=== PATIENT | male | born 1940 | race Caucasian/White ===

== ENCOUNTER → 2018-01-28 | Outpatient (CLI) | payer OTHER ==
--- NOTE | 2018-01-28 14:23 | RAD ---
CT LOW DOSE LUNG SCREENING Indication: GREATER THAN 40 PACK-YEAR SMOKING HISTORY. LOW DOSE PROTOCOL.
NO FAMILY H/O
1 PACK A DAY Exposure: One or more of the following individualized dose reduction techniques were utilized for this examination: 1. Automated exposure control 2. Adjustment of the mA and/or kV according to patient size 3. Use of iterative reconstruction technique. Comparison: None are available. Contrast: None TECHNIQUE: Low-dose technique was used to screen for pulmonary lesion. FINDINGS: There is a well-defined slightly lobulated mass in the right lower lobe posteriorly, measures 2 cm diameter. This demonstrates some small foci of mostly peripheral calcification. Smaller subpleural nodule the posterior right lower lobe measures 7 mm, image 214, series 2. Noncalcified nodule right lower lobe image 189 measures 5 mm. Right upper lobe nodule, image 73 measures 4 mm. Lingula segment nodule on the left, image 156, measures 3 mm. Another anterior nodule on the left, image 132, measures 2 mm. Left lower lobe nodule, image 224, measures 6 mm. Additional small nodules are also identified. There are linear markings of both lungs, likely atelectasis or fibrosis. Mild bronchial wall thickening. Coronary calcifications are identified. No significant pleural effusion. No significant lymph node enlargement. Partially visualized thyroid appears unremarkable. Severe severe degenerative changes are noted at both shoulders. Limited scans through the upper abdomen demonstrate a tiny nonobstructive calculus in the upper pole of the left kidney. Degenerative changes of the thoracic spine. IMPRESSION: 2 cm right lower lobe pulmonary mass, concerning for malignancy. There are multiple bilateral noncalcified pulmonary nodules, concerning for metastatic disease. FOR INTERNAL CODING PURPOSES Critical result: Findings discussed with Kannan in Dr. Ruvalcaba's office at 01/28/2018 2:17 PM. RESULT CODE: (C) Electronically signed by: Prem Muniz MD (01/28/2018 2:20 PM) [facility]
== END | disposition home or self-care (01) ==
LOC: CT 10:17
PROVIDERS: ATTEND Family Medicine
DX: Z12.2 Encounter for screening for malignant neoplasm of respiratory organs (principal); F17.218 Nicotine dependence, cigarettes, with other nicotine-induced disorders; I25.10 Atherosclerotic heart disease of native coronary artery without angina pectoris; N20.0 Calculus of kidney; R91.8 Other nonspecific abnormal finding of lung field
CPT/HCPCS: G0297

== ENCOUNTER → 2018-02-18 | Outpatient (CLI) | payer OTHER ==
--- NOTE | 2018-02-18 11:00 | CARD ---
MR#: [id number] Date of Study: 02/18/2018 Ordering Physician: SHIRLEY RODRIGUEZ, Referring Physician: SHIRLEY RODRIGUEZ Tech: Faby Middleton RDCS APPROVED REPORT EXAM: Two-dimensional and M-mode echocardiogram with Doppler and color Doppler. Other Information Quality : Good INDICATION Aortic Valve Disease 2D DIMENSIONS RVDd3.3 (2.9-3.5cm)Left Atrium(2D)3.8 (1.6-4.0cm) IVSd1.7 (0.7-1.1cm)Aortic Root(2D)3.4 (2.0-3.7cm) LVDd4.7 (3.9-5.9cm)LVOT Diameter2.2 (1.8-2.4cm) PWd1.3 (0.7-1.1cm)LVDs3.2 (2.5-4.0cm) FS (%) 32.2 %SV61.2 ml LVEF(%)60.4 (>50%) Aortic Valve AoV Peak [place].410.6cm/sAoV VTI94.1cm AO Peak GR.67.4mmHgLVOT Peak [place].104.5cm/s AO Mean GR.40mmHgAVA (VMAX)0.96cm2 LILY (VTI)1.19sn3ZN P 1/2 Hcnj116lv Mitral Valve MV E Zngeipwx844.1cm/sMV DECEL DXEC271zc MV A Zqedvcay05.0cm/sE/A Ratio1.9 Tricuspid Valve TR P. Ubbggmpb745zx/sRAP ARMMETZX6jkGi TR Peak Gr.29boOpPAJU99kvZk Pulmonary Vein S1 Dxmykutp17.2cm/sD2 Aninmomj48.8cm/s LEFT VENTRICLE The left ventricle is normal size. There is mild to moderate concentric left ventricular hypertrophy. The left ventricular systolic function is normal. The Ejection Fraction is 55-60%. There is normal L V segmental wall motion. Transmitral Doppler flow pattern is Grade II-pseudonormal filling dynamics. RIGHT VENTRICLE The right ventricle is normal size. The right ventricular systolic function is normal. ATRIA The left atrium size is normal. The right atrium size is normal. The interatrial septum is intact wit h no evidence for an atrial septal defect or patent foramen ovale as noted on 2-D or Doppler imaging. AORTIC VALVE The aortic valve is calcified and displays decreased opening. Doppler and Color Flow revealed moderat e aortic regurgitation. Calculated aortic valve area is 1.1 cm2 with maximum pressure gradient of 67 mmHg and mean pressure gradient of 40 mmHg. Doppler and color-flow analysis revealed moderate aortic stenosis. MITRAL VALVE The mitral valve is calcified but opens well. Mitral annular calcification is mild to moderate. There is no evidence of mitral valve prolapse. There is no mitral valve stenosis. Doppler and Color-flow r evealed moderate mitral regurgitation. TRICUSPID VALVE The tricuspid valve is normal in structure and function. Doppler and Color Flow revealed mild tricusp id regurgitation. There is moderate pulmonary hypertension. The PA pressure was estimated at 50 mmHg. There is no tricuspid valve stenosis. PULMONIC VALVE The pulmonic valve is not well visualized. Doppler and Color Flow revealed no pulmonic valvular regur gitation. There is no pulmonic valvular stenosis. GREAT VESSELS The aortic root is normal in size. The ascending aorta is not well seen. The IVC is normal in size an d collapses >50% with inspiration. PERICARDIAL EFFUSION There is no evidence of significant pericardial effusion. Critical Notification Critical Value: No <Conclusion> The left ventricular systolic function is normal. The Ejection Fraction is 55-60%. There is normal LV segmental wall motion. There is mild to moderate concentric left ventricular hypertrophy. Moderate aortic stenosis with calculated aortic valve area 1.1 cm2 and mean pressure gradient of 40 m mHg. Moderate aortic regurgitation. Moderate mitral regurgitation. Mild tricuspid regurgitation. There is moderate pulmonary hypertension. The PA pressure was estimated at 50 mmHg. There is no evidence of significant pericardial effusion. Signed by : Glenroy Culp, Electronically Approved : 02/18/2018 10:59:02
== END | disposition home or self-care (01) ==
LOC: ECHO 09:49
PROVIDERS: ATTEND Family Medicine
DX: I08.3 Combined rheumatic disorders of mitral, aortic and tricuspid valves (principal); I27.20 Pulmonary hypertension, unspecified
CPT/HCPCS: 93306

== ENCOUNTER → 2018-02-27 | Outpatient (CLI) | payer OTHER ==
--- NOTE | 2018-02-28 08:28 | RAD ---
FDG tumor localization scan, PET/CT, 02/27/2018: History: Lung cancer Following IV injection of 15.1 mCi of 18 F-FDG, imaging was performed from the skull base to the proximal thighs. The noncontrast CT component was performed for attenuation correction and anatomic localization purposes rather than for primary diagnosis. The patient's blood glucose level at the time of injection was 100 MG/DL. Physiologic activity is evident in the neck. No hypermetabolic neck lesion is seen. There is patient respiratory motion artifact on the CT component which causes some degree of misregistration. The patient's known partially calcified nodule in the posterior aspect of the right lower lobe does not demonstrate abnormal FDG uptake. The other tiny nodules described on the 01/28/2018 CT study are too small to accurately evaluate with PET imaging. Mild hypermetabolic groundglass type infiltrates have developed in the lingula, posterolateral aspect of left upper lobe and lateral aspect of the right lower lobe. The maximum SUV in these infiltrates is approximately 3. The findings suggest pneumonia. Slightly increased activity at the left hilum is only slightly greater than the mediastinal background, demonstrate a maximum SUV of 3.6. This is likely on a reactive basis. Normal GI tract and urinary tract activity is present in the abdomen and pelvis. No hypermetabolic abdominal or pelvic lesion is seen. Increased activity at both shoulders, right greater than left is compatible with arthritis. Incidental CT findings include the presence of fluid and mucosal thickening in the paranasal sinuses compatible with sinusitis. There is moderate calcific plaquing of the aorta and calcific plaquing at the carotid bifurcations. Mild coronary artery calcifications are present. IMPRESSION: 1. The patient's known right lower lobe pulmonary nodule is not hypermetabolic, suggesting a benign etiology. The evaluation is compromised by patient motion artifact and possible misregistration. The patient's other tiny scattered pulmonary arteries are too small to evaluate with FDG PET imaging. CT follow-up is suggested. 2. Mildly hypermetabolic pulmonary infiltrates have developed in the right lower lobe and the left upper lobe, suggesting pneumonia. 3. Slightly increased activity at the left hilum is probably on a reactive basis. 4. Incidental note is made of bilateral paranasal sinusitis.
== END | disposition home or self-care (01) ==
LOC: PETSC 12:03
PROVIDERS: ATTEND Internal Medicine Pulmonary Disease
DX: R91.1 Solitary pulmonary nodule (principal); R91.8 Other nonspecific abnormal finding of lung field; J32.9 Chronic sinusitis, unspecified
CPT/HCPCS: 78815; A9552

== ENCOUNTER 2018-03-04 07:03 | Outpatient (CLI) | payer OTHER ==
[~2018-03-04] VITALS: Ht 182.9 cm; Wt 77.1 kg
[2018-03-04] VITALS (16 sets, daily range): BP systolic 85–158; BP diastolic 48–81
[2018-03-04] MEDS ORDERED: LISI-334 PO (07:27)
[2018-03-04 07:44] LABS: CALCIUM 8.9 mg/dL (8.5-10.1); CREATININE 0.9 mg/dL (0.7-1.3); GFR 81.8; POTASSIUM 4.2 mmol/L (3.5-5.1)
[2018-03-04] MEDS ORDERED: LIDOCAINE WITH 8.4% SOD BICARB 3 ML DISP.SYRIN. ONE (08:05)
[2018-03-04] MEDS ORDERED: LIDOCAINE WITH 8.4% SOD BICARB 3 ML DISP.SYRIN. INJ ONE (09:15)
--- NOTE | 2018-03-04 10:42 | RAD ---
CT-guided biopsy, right lower lobe pulmonary nodule 03/04/2018 Indication: 78-year-old male, significant smoking history. Partially calcified nodule, right lower lobe. PET/CT shows no significant uptake, though significant motion artifact noted during the time of that exam. Discussion: The risks and benefits of the procedure were discussed the patient. Informed consent was obtained. The patient was brought to the CT scanner placed in supine position .A timeout procedure was performed. CT imaging was obtained redemonstrating a rounded partially calcified nodule in the basilar right lower lobe. Also noted is mild possible infiltrate versus atelectasis in the right lower lobe and to a lesser degree the middle lobe. The the right posterior thorax was prepped and draped using sterile barrier technique. 1% lidocaine without epinephrine was administered to the skin and subcutaneous tissues for local anesthesia. Under intermittent CT guidance a 17-gauge needle was advanced to the periphery of the nodule. 2 x 18-gauge core biopsy samples were obtained. Perilesional hemorrhage was noted during the biopsy. [place] were removed. A miniscule focus of pneumothorax appears to be present following biopsy. Mild hemoptysis was noted which shortly resolved. The patient remained hemodynamically stable throughout the procedure. The patient was sent to the recovery area for close observation. Patient will be initiated on oral antibiotic therapy for possible community-acquired pneumonia. Follow-up chest x-ray pending. Anesthesia: Local only Impression: CT-guided biopsy, left lower lobe nodule. Perilesional hemorrhage, mild hemoptysis, and miniscule pneumothorax noted. Patient will be observed for several hours with follow-up radiographs. RS Compliance Statement: One or more of the following individualized dose reduction techniques were utilized for this examination: 1. Automated exposure control 2. Adjustment of the mA and/or kV according to patient size 3. Use of iterative reconstruction technique
--- NOTE | 2018-03-04 11:48 | RAD ---
Single view of the chest. 03/04/2018 11:15 AM Indication: POST LUNG BIOPSY. Comparison: CT imaging of the chest during biopsy, earlier same day Findings: No pneumothorax is identified. No significant pleural effusion is seen. Heart size is normal. Mild haziness in the right lung base may represent mild perilesional hemorrhage. No acute osseous changes are seen. IMPRESSION: No pneumothorax or other acute cardiopulmonary process Electronically signed by: Jimmie Nicole MD (03/04/2018 11:45 AM) [facility]
--- NOTE | 2018-03-05 16:09 | PATHOLOGY ---
[facility] Accession Number: [id number] . 01 Material submitted: . RIGHT LUNG MASS BIOPSY . 01 Clinical history: . Right lung mass . 02 Diagnosis: Lung tissue, right lung mass needle biopsy: - Small segments of lung tissue showing interstitial edema and slight chronic inflammation with small lobulated segment of benign cartilage identified. See comment. (JPM:station agent; 03/05/2018) MBR/03/05/2018 . 02 Comment: Sections of the right lung mass needle biopsy reveal small segments of lung tissue showing interstitial edema and slight chronic inflammation. One of the segments is focally lined by bronchial epithelium. This same segment contains a slightly lobulated segment of benign cartilage. I have reviewed the CT scan of the lung with Dr. Nicole. 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 There is no evidence of malignancy in the biopsy material. (JPM:station agent; 03/05/2018) . 02 Electronically signed: . Blaine Villalobos MD, Pathologist NPI- [id number] . 01 Gross description: . Received in formalin labeled "John Subramanian, right lung mass," are a few small needle cores of robert soft tissue measuring 0.3 x 0.2 x 0.1 cm in aggregate dimensions. The specimen is filtered and entirely submitted in cassette A1. (TSD; 03/04/2018) TOB/TOB . 02 Pathologist provided ICD-10: J98.4 . 02 CPT . 881759 Specimen Comment: A courtesy copy of this report has been sent to Specimen Comment: [phone], , . Specimen Comment: Report sent to ,DR CHÁVEZ / DR RODRIGUEZ Performed at: 01 [facility] [address], [place], [place] [id number] MD Ulices Mclaughlin MD Phone: [phone] Performed at: 02 [facility] [address], [place] [id number] MD Blaine Villalobos MD Phone: [phone]
== END 2018-03-04 11:50 | disposition home or self-care (01) ==
LOC: INTRAD 07:03
PROVIDERS: ATTEND Internal Medicine Pulmonary Disease
DX: D14.30 Benign neoplasm of unspecified bronchus and lung (principal); R04.89 Hemorrhage from other sites in respiratory passages; R04.2 Hemoptysis; J98.4 Other disorders of lung; J84.89 Other specified interstitial pulmonary diseases
CPT/HCPCS: 32405; 36415; 71045; 77012; 80048; 85610